=== PATIENT | male | born 2005 | race Caucasian/White ===

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

== ENCOUNTER 2024-02-21 13:24 | Emergency (ER) | payer MEDICAID, SELFPAY ==
[2024-02-21 13:28] VITALS: BP 146/53; PULSE 71; RESP 18; O2SAT 99
[2024-02-21] MEDS: Lidocaine/Epinephri/Tetracaine Topical Gel 3 ML (13:58)
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
== END 2024-02-21 15:04 | disposition home or self-care (01) ==
PROVIDERS: Emergency Provider Emergency Medicine; PCP Student in an Organized Health Care Education/Training Program
DX: S61.211A Laceration without foreign body of left index finger without damage to nail, initial encounter (principal); W26.0XXA Contact with knife, initial encounter; Y93.89 Activity, other specified
CPT/HCPCS: 12001; 99283

== ENCOUNTER 2025-09-29 12:10 | Emergency (ER) | payer SELFPAY ==
[2025-09-29] VITALS (8 sets, daily range): BP systolic 126–139; BP diastolic 76–90; PULSE 64–85; RESP 16–19; TEMP 36.9; O2SAT 98–99
--- NOTE | 2025-09-29 12:00 | RT.EKG_ITS ---
APPROVED REPORT Exam: Resting ECG Reason for Exam: SOB, Blurred Vision Patient Location: E HR:80 bpm ECG Measurements Heart Rate 80 AXIS SC 142 P 51 QRSd 85 QRS 86 QT 327 T 16 QTc 378 Conclusion Sinus rhythm...normal P axis, V-rate 60- 99
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
--- NOTE | 2025-09-29 12:30 | DI.RAD_ITS ---
Exam(s) XR CHEST 2V PA LATERAL EXAM: XR CHEST 2V PA LATERAL CLINICAL HISTORY: cough, sternal CP. TECHNIQUE: 2D digital imaging was performed. COMPARISON: No exams were available for comparison FINDINGS: 2 views: Heart size is normal. The mediastinum is not widened. Lungs are clear. No infiltrates nor pleural effusions. IMPRESSION: No acute pulmonary findings. DATA REPOSITORY: RADIATION DOSE DELIVERED:
[2025-09-29] MEDS: Famotidine 20 MG/2 ML VIAL IVP (13:07)
[2025-09-29 13:18] LABS: Abs Immature Grans 0.03 10^3/uL (0.0-0.06); HCT 49.0 % (40.0-50.0); HGB 16.3 g/dL (13.5-17.5); Immature Grans % 0.4 %; MCH 27.7 pg (27.0-33.0); MCHC 33.3 % (32.0-36.0); MCV 83 fL (80-95); MPV 10.7 fL (8.0-11.0); Platelet Count 339 10^3/uL (130-400); RBC 5.89 10^6/uL (4.36-5.78); RDW 12.9 % (11.8-14.1); RDW-SD 38.9 fL; WBC 7.66 10^3/uL (4.4-10.8)
[2025-09-29 13:35] LABS: ALT 22 U/L (10-49); AST 17 U/L (<34); Albumin 4.6 g/dL (3.4-5.0); Alkaline Phosphatase 67 U/L (46-116); Anion Gap 7.8 mmol/L (3-11); BUN 10 mg/dL (9-23); Bilirubin, Total 1.00 mg/dL (0.2-1.2); CO2 27.2 mmol/L (20.0-31.0); Calcium 9.8 mg/dL (8.3-10.6); Chloride 105 mmol/L (98-107); Glucose 102 mg/dL (74-106); Potassium 3.8 mmol/L (3.5-5.1); Sodium 140 mmol/L (136-145); Total Protein 7.5 g/dL (5.7-8.2)
[2025-09-29 13:52] LABS: COVID-19 PCR Negative (Negative); RSV PCR Negative (Negative)
--- NOTE | 2025-09-29 14:24 | DI.VRAD_ITS ---
PROCEDURE INFORMATION: Exam: XR Chest Exam date and time: 09/29/2025 1:28 PM Age: 20 years old Clinical indication: Cough TECHNIQUE: Imaging protocol: Radiologic exam of the chest. Views: 2 views. COMPARISON: No relevant prior studies available. FINDINGS: Lungs: Unremarkable. No consolidation. Pleural spaces: Unremarkable. No pleural effusion. No pneumothorax. Heart/Mediastinum: Unremarkable. No cardiomegaly. Bones/joints: Unremarkable. IMPRESSION: No acute findings. Dictated and Authenticated by: Donna Wiley MD. Orderin Vargas Wang MD
== END 2025-09-29 14:54 | disposition home or self-care (01) ==
PROVIDERS: Emergency Provider Nurse Practitioner Family
DX: R07.9 Chest pain, unspecified (principal); R06.02 Shortness of breath; S06.0XAA Concussion with loss of consciousness status unknown, initial encounter; W01.0XXA Fall on same level from slipping, tripping and stumbling without subsequent striking against object, initial encounter
CPT/HCPCS: 99284; 99285; 36415; 96374; 80053; 87637; 93005; 71046; 85025; 93010